=== PATIENT | male | born 1995 | race Caucasian/White ===

== ENCOUNTER 2025-01-29 16:24 | Emergency (ER) | payer SELFPAY ==
[2025-01-29 16:27] VITALS: BP 134/83
--- NOTE | 2025-01-29 19:15 | ED.GENMED ---
History of Present Illness
General
Chief Complaint: Crisis Evaluation
Source: patient
Exam Limitations: none
Time Seen by Provider: 01/29/25 16:59
Nursing documentation reviewed up to this point in time: agreed with
History of Present Illness
History of Present Illness:
Patient with history of depression, anxiety, and ADHD, presents to ED secondary to worsening depression along with suicidal ideation. Patient otherwise has no medical complaints. Denies headache. Denies chest pain. Denies coughing. Denies
abdominal pain. Denies loss of appetite. Denies recent illness. Denies recent travel. Denies recent change in medications.
Review of Systems
Review of Systems
Allergies reviewed?: Yes
All Other Systems: ROS reviewed and negative except as documented in HPI and ROS
Constitutional: Reports no symptoms
Respiratory: Reports no symptoms; Denies cough
ABD/GI: Reports no symptoms; Denies vomiting or diarrhea
Skin: Reports no symptoms
Neurological: Reports no symptoms
Psychiatric: Reports depression and suicidal
Phy Exam
Physical Exam
Physical Exam:
Physical Exam
General: no apparent distress, not acutely ill. afebrile
Head: nc/at. eomi
Neck: supple. normal range of motion
Abdomen: normal bowel sounds. not tender.
Neuro: alert and oriented x 3. no focal neurological deficits
Skin: no rash
Psychiatric: well kept. interactive and cooperative
Extremities: no edema. no calf tenderness.
Course
Orders/Labs/Results
Orders:
Orders
01/29/25 16:36
1:1 Observation - Suicide/ Violent Behavior As Directed
01/29/25 16:44
Crisis Consult Urgent
Reason for Consult: positive si
01/29/25 19:03
Urine Drug Abuse Screen Urgent
Date Specimen was Collected: 01/29/25
Time Specimen was Collected: 18:52
01/29/25 19:37
observation [ED Special Safety Observation] ONCE
Observation level: One to Two
01/29/25 22:00
Duloxetine Delayed Release [Cymbalta Delayed Release] 90 mg PO HS
Abnormal Lab Results
01/29/25
19:03
U Marijuana (THC) Screen Positive H
(Negative)
Vital Signs
Initial and Last Documented VS:
Initial Vital Signs
Temp Pulse Resp BP Pulse Ox
98.4 F 80 16 134/83 99
01/29/25 16:27 01/29/25 16:27 01/29/25 16:27 01/29/25 16:27 01/29/25 16:27
Last Documented Vital Signs
Temp Pulse Resp BP Pulse Ox
98.4 F 80 16 134/83 99
01/29/25 16:27 01/29/25 16:27 01/29/25 16:27 01/29/25 16:27 01/29/25 16:27
MDM/Problems Addressed
MDM/Problems Addressed:
Patient evaluated ED by Alex cueva. Back of 302 petition filed by patient's mother. Patient will be transferred to inpatient psychiatric facility for further evaluation and treatment.
Patient is medically cleared. No further workup necessary at this time.
*Critical Care Note
Total Time (30-74mins, 75-104mins- exclusive of procedures): Not Applicable
ED Attending Note
-
Portions of this chart may have been created with voice recognition software.� Occasional wrong word or��sound alike� substitutions may have occurred due to the inherent limitations of voice recognition software.
Discharge Plan
Departure
Patient Disposition: Psych Facility
Date of Disposition: 01/29/25
Time of Disposition: 19:16
Patient Status:: 201
Condition: Good
Discharge Problem:
Suicidal ideation
Interventions
Interventions:
*Risk Screen - Suicide Last Done: 01/29/25 16:27
*General Assessment Last Done: 01/29/25 17:01
*Neglect/Abuse Screening Last Done: 01/29/25 16:27
*ED- Fall Risk Assessment Last Done: 01/29/25 17:01
*ED COVID-19 Vaccine History Last Done: 01/29/25 17:01
*Nursing Disposition Last Done: 01/29/25 23:42
ED-Psychological Assessment Last Done: 01/29/25 17:01
Discharge Date and Time
Discharge Date/Time: 01/30/25 00:00
Print Language: POLISH
[2025-01-29 19:30] LABS: Amphetamines Negative (Negative); Barbiturates Negative (Negative); Benzodiazepines Negative (Negative); Buprenorphine Negative (Negative); Cocaine Negative (Negative); Marijuana Positive (Negative); Methadone Negative (Negative); Methamphetamines Negative (Negative); Opiates Negative (Negative)
[2025-01-29 19:31] LABS: Phencyclidine Negative (Negative); Tricyclic Antidepressants Negative (Negative)
[2025-01-29] MEDS: CYMBALTA DELAYED RELEASE 90 MG PO (22:15)
== END 2025-01-30 ==
LOC: EMR 16:24
PROVIDERS: EMERGENCY PHYSICIAN Emergency Medicine
DX: R45.851 Suicidal ideations (principal); F32.A Depression, unspecified; F41.9 Anxiety disorder, unspecified; F90.9 Attention-deficit hyperactivity disorder, unspecified type
CPT/HCPCS: 99285; 80306